=== PATIENT | female | born 1970 | race Caucasian/White ===

== ENCOUNTER → 2024-06-05 12:16 | Outpatient (CLI) | payer BC, SELFPAY ==
[2024-06-05 15:27] LABS: Influenza A - CEPHEID Flu A NEGATIVE (NEGATIVE); Influenza B - CEPHEID Flu B NEGATIVE (NEGATIVE); Respiratory Syncytial Virus Negative (Negative)
[2024-06-05 15:30] LABS: COVID-19 CEPHEID 4-PLEX PCR Negative (Negative)
== END ==
PROVIDERS: Visit Provider Student in an Organized Health Care Education/Training Program
DX: R05.1 Acute cough (principal)
CPT/HCPCS: 0241U

== ENCOUNTER → 2024-07-27 08:15 | Outpatient (CLI) | payer BC, SELFPAY ==
[2024-07-27 10:29] LABS: Add Manual Diff / Slide Review NO; Basophils Absolute Auto 100 /uL (0-100); Basophils Percent Auto 1.2 % (0-2); Eosinophils Absolute Auto 100 /uL (0-450); Eosinophils Percent Auto 2.8 % (2-4); Hematocrit 37.6 % (36-46); Hemoglobin 12.4 g/dL (12.0-16.0); Lymphocytes Absolute Auto 2100 /uL (1100-4500); Lymphocytes Percent Auto 44.4 % (25-40); Mean Corpuscular HGB Conc 32.9 % (30-36); Mean Corpuscular Hemoglobin 29.8 PG (26-34); Mean Corpuscular Volume 90.5 fL (80-100); Monocytes Absolute Auto 400 /uL (0-900); Monocytes Percent Auto 8.6 % (3-14); Neutrophils Absolute Auto 2000 /uL (1500-7000); Platelet Count 267 X10^3/uL (150-400); Red Blood Cell Count 4.16 X10^6/uL (4.0-5.2); Red Cell Distribution Width 13.8 % (11.6-14.8); White Blood Cell Count 4.7 X10^3/uL (4.5-11.0)
[2024-07-27 10:55] LABS: HEMOLYSIS < 15 (0-50); Iron 67 ug/dL (37-170)
[2024-07-27 11:03] LABS: Alanine Aminotransferase 21 IU/L (<35); Albumin 4.1 g/dL (3.5-5.0); Albumin Globulin Ratio 1.5 (1.0-2.8); Alkaline Phosphatase 65 U/L (38-126); Aspartate Aminotransferase 29 IU/L (14-36); BUN Creatinine Ratio 18.7 (6-22); Bilirubin Total 0.5 mg/dL (0.2-1.3); Blood Urea Nitrogen 14 mg/dL (7-17); Calcium 9.7 mg/dL (8.4-10.2); Carbon Dioxide 31 mmol/L (22-32); Chloride 105 mmol/L (98-107); Cholesterol 252 mg/dL (140-199); Estimated Glomerular Filt Rate > 60 mL/min (>60); Globulin 2.8 g/dL (1.7-4.1); Glucose 90 mg/dL (70-100); HDL Cholesterol 70 mg/dL (40-60); HEMOLYSIS < 15 (0-50); LDL Cholesterol Calculated 162 mg/dL (<100); Potassium 4.5 mmol/L (3.4-5.1); Sodium 138 mmol/L (137-145); Total Protein 6.9 g/dL (6.3-8.2); Triglycerides 99 mg/dL (35-150)
[2024-07-27 11:05] LABS: Percent Iron Saturation 20 % (15-50); Total Iron Binding Capacity 327 ug/dL (265-497); Transferrin 263 mg/dL (206-381)
[2024-07-27 11:15] LABS: Vitamin D 25 Hydroxy (D3) 29.9 ng/mL (30.0-100.0)
[2024-07-27 11:16] LABS: Free T4, Direct Thyroxine 0.99 ng/dL (0.78-2.19)
[2024-07-27 11:30] LABS: TSH w/ Reflex to FT4 1.03 uIU/mL (0.47-4.68)
[2024-07-27 11:39] LABS: Ferritin 17 ng/mL (11-264)
[2024-07-27 12:06] LABS: Folate > 20.0 ng/mL (2.76-20.0); Vitamin B12 654 pg/mL (239-931)
== END ==
PROVIDERS: PCP Registered Nurse Diabetes Educator; Referring Provider Registered Nurse Diabetes Educator; Visit Provider Registered Nurse Diabetes Educator
DX: Z00.00 Encounter for general adult medical examination without abnormal findings (principal); D64.9 Anemia, unspecified; R53.83 Other fatigue
CPT/HCPCS: 36415; 80053; 80061; 82306; 82607; 82728; 82746; 83540; 83550; 84439; 84443; 85025

== ENCOUNTER → 2024-12-02 10:33 | Outpatient (CLI) | payer BC, SELFPAY | PROVIDERS: PCP Registered Nurse Diabetes Educator; Visit Provider Registered Nurse | DX: J02.9 Acute pharyngitis, unspecified (principal) | CPT/HCPCS: 87070 ==

== ENCOUNTER → 2025-02-13 17:31 | Outpatient (CLI) | payer BC, SELFPAY ==
--- NOTE | 2025-02-13 17:32 | DI.RAD.S_ITS ---
PROCEDURE: XR HIP W PEL IF DONE LT 2V INDICATIONS: eval L hip pain x 2 months TECHNIQUE: 2 views of the hip were acquired. COMPARISON: None. FINDINGS: Bones: No fractures or dislocations. No suspicious bony lesions. The visualized pelvic ring appears intact. Soft tissues: No suspicious soft tissue calcifications or masses. IMPRESSION: No acute bony abnormality. Approved by: Abraham Wade M.D. on 02/14/2025 at 17:11
== END ==
PROVIDERS: PCP Registered Nurse Diabetes Educator; Referring Provider Registered Nurse Diabetes Educator; Visit Provider Registered Nurse Diabetes Educator
DX: M25.552 Pain in left hip (principal)
CPT/HCPCS: 73502

== ENCOUNTER 2025-05-30 09:00 | Outpatient (RCR) | payer BC, SELFPAY ==
--- NOTE | 2025-04-04 13:29 | PT.OIE ---
Current Diagnoses Stress incontinence (female) (male) (04/03/25) Past Medical History (Last Reviewed 03/23/25 @ 09:47 by Sarika Garg MA) Anxiety Dyslipidemia History of left breast cancer Major depressive disorder, recurrent, mild Visit Care Team Role Provider Type LEA Flowers Attending Provider Advanced Visual Coordinator Family Provider Primary Care Provider Referring Provider Specialty: Medical Address: [address] [place] [address], [facility] Email: [email or web address] Physical Therapy Initial Evaluation PT-OP-A Visit Information Start: 04/03/25 13:10 Freq: Status: Active Protocol: Document 04/03/25 15:22 [facility] (Rec: 04/03/25 15:38 [facility] [id number]) Out-Patient Physical Therapy Visit Information Visit Information Visit Type Initial Evaluation Visit Note pt late for paperwork prior to appt, Visit Start Time 15:25 Visit Stop Time 16:05 Visit Number 1 Evaluation Information Evaluation Date 04/03/25 PT-OP-B Current Condition Start: 04/03/25 13:10 Freq: Status: Active Protocol: Document 04/03/25 15:22 [facility] (Rec: 04/03/25 15:38 [facility] [id number]) Current Condition History of Current Condition Current Complaints urinary stress incontinence History of Current pt notes symptoms since she was 40. Pt notes leakage Condition with running, coughing, sneezeing, jumping. Sometimes she will also have urgency and will then leak. She thinks about her symptom daily and she did start wearing protective underware. No symptoms of pelvic floor heaviness. Has c/o left sided hip pain. Pain started in Feburary. One vaginal delivery at 40 years old. Minor tearing into the perineum. hx of breast cancer 2016 and took tomoxifin and stopped taking it in 2021 she does have a history of pain with intercourse, worse in the past 6 months. pt shows me where her hip pain is and its at the top of her pelvis. Bowel movements are more loose now than previously fluid intake tries to drink a lot of water, 1-2 cups of coffee in the am and in evening water or sparkling wakes up 1 time some times 2 to void at night. PT-OP-C Subjective Start: 04/03/25 13:10 Freq: Status: Active Protocol: Document 04/03/25 16:18 [facility] (Rec: 04/03/25 16:19 [facility] [id number]) Patient Questionnaires Pelvic Pain and Urgency/Frequency Patient Symptom Scale Pelvic Pain Score 5 OP-PT Pain Assessment Location left iliac crest pain Pain Location pain on top of the iliac crest Details Intensity 4 Scale Used Numeric (0 - 10) Description Aching Description- Other worse the day after running PT-OP-I Pelvic Floor Start: 04/03/25 13:10 Freq: Status: Active Protocol: Document 04/03/25 16:10 [facility] (Rec: 04/03/25 16:13 [facility] [id number]) Pelvic Floor Assessment Urine Pelvic Floor Surgery No Other Urinary urinary stress incontinence Symptoms Leakage Cause Exercise Other Leakage Causes strong urge to void and walking to the toilet Leaks Per Day 1-2 Pads Used In 24 she is using specific underwear for leakage Hours Pelvic Clock Pelvic Clock 12-3 Atrophy Pelvic Clock 3-6 Atrophy Pelvic Clock 6-9 Atrophy Pelvic Clock 9-12 Atrophy Contraction Ability Voluntary Weak Contraction Voluntary Relaxation Weak Manual Muscle 2 Testing Left Manual Muscle 2 Testing Right Manual Muscle 1 Testing Anterior Manual Muscle 1 Testing Posterior Muscle Endurance ( 8 Seconds) Comments Pelvic Floor pubococcygeus weakness Comments PT-OP-Q Treatments Start: 04/03/25 13:10 Freq: Status: Active Protocol: Document 04/03/25 16:08 [facility] (Rec: 04/03/25 16:10 [facility] [id number]) Therapeutic Exercises Supine Exercises supine adductor assist with pelvic floor Reps/Minutes 10 reps holding 10 seconds and relaxing 10 seconds Comments cues to focus on the anterior pelvic floor Sidelying Exercises clam shells Reps/Minutes 3 x 10 reps 2-3 days per week Self-Care/Home Management Treatment Education Patient Education Home Exercise Program Other Education pt was educated on vaginal estrogen cream for atrophy PT-OP-T Assessment and Plan Start: 04/03/25 13:10 Freq: Status: Active Protocol: Document 04/03/25 15:15 [facility] (Rec: 04/04/25 13:26 [facility] [id number]) Physical Therapy Assessment Rehab Potential Rehabilitation Excellent Potential Evaluation Complexity Number of Personal 0 Factors/ Comorbidities Number of Body 1-2 Systems Impaired Clinical Stable Presentation at Evaluation Impairments Impairments Activity Tolerance,Pain,Soft Tissue Mobility,Strength Other Impairments urinary stress incontinence Goals 3 Impairment weakness of the pelvic floor with anterior wall of 1/5 MMT, posterior wall 1/5 MMT and lateral shipman 2/5 Brain Picker Goal (LTG) With a pelvic floor strengthening program Torie is able to increase pelvic floor strength to 3/5 MMT for all shipman of the levator ani LTG Duration 8 weeks 2 Impairment urge incontinence symptoms when pt is trying to walk to the bathroom to void once she has a strong urge to void Short Term Goal (STG Torie is educated on the urge deference technique and ) bladder retraining STG Duration 4 weeks [facility] Goal (LTG) Torie is no longer c/o urinary urgency and urge incontinence symptoms LTG Duration 8 weeks 1 Impairment urinary stress incontinence with exercise and with sneezing and coughing Brain Picker Goal (LTG) Torie reports a overall reduction in urinary stress incontinence symptoms LTG Duration 8 weeks Assessment Summary Assessment Torie is a 54 year old female who presents to PT with primary c/o urinary stress incontinence with some c/o urgency and urge incontinence symptoms. She notes her symptoms began after the vaginal delivery of her baby at age 40. She also has a history of breast cancer in 2017 and took tamoxifen x 5 years. Torie is a runner but has had to cut back on running due to left sided hip pain. She also reports urinary leakage with running. With exam today there is vaginal atrophy noted and Torie is weak in all sections of the pelvic clock. She tests 1/5 MMT for the anterior and posterior shipman and 2/5 MMT for the lateral shipman of the levator ani. She is able to sustain a contraction approx 8 seconds in supine. Torie may be a good candidate for vaginal estrogen cream to help with the atrophy and I did talk to her about discussing this option with her doctor. She is also dealing with left sided hip/pelvis pain that limits her running. Her pain is described on the top of the iliac crest on the left side. She tests weak for lateral hip strength on the left side. She is a good candidate for PT working on pelvic floor strength and endurance training as well as hip stabilization exercises. Physical Therapy Plan Frequency and Duration Frequency of 1x/Week Treatment Duration of 8 treatment (weeks) Plan of Care Start 04/03/25 Date Plan of Care End 05/29/25 Date Therapeutic Interventions Therapeutic Home Exercise Program,Neuromuscular Re-education, Interventions Patient/Caregiver Education,Self-Care/Home Management, Therapeutic Exercises Modalities Biofeedback Next Visit Focus/Plan Next Note Type Treatment Note Next Visit Plan Begin EMG biofeedback for pelvic floor strength and endurance training
--- NOTE | 2025-04-04 13:29 | PT.OPPOC ---
Physical, Occupational & Speech Therapy At [facility] Current Diagnoses Stress incontinence (female) (male) (04/03/25) Visit Care Team Role Provider Type LEA Flowers Attending Provider Advanced Replacer Family Provider Primary Care Provider Referring Provider Specialty: Medical Address: [address] [place] [address], [facility] Email: [email or web address] Plan Of Care PT-OP-B Current Condition Start: 04/03/25 13:10 Freq: Status: Active Protocol: Document 04/03/25 15:22 [facility] (Rec: 04/03/25 15:38 [facility] [id number]) Current Condition History of Current Condition Current Complaints urinary stress incontinence History of Current pt notes symptoms since she was 40. Pt notes leakage Condition with running, coughing, sneezing, jumping. Sometimes she will also have urgency and will then leak. She thinks about her symptom daily and she did start wearing protective underwear. No symptoms of pelvic floor heaviness. Has c/o left sided hip pain. Pain started in November. One vaginal delivery at 40 years old. Minor tearing into the perineum. hx of breast cancer 2016 and took tomoxifen and stopped taking it in 2021 she does have a history of pain with intercourse, worse in the past 6 months. pt shows me where her hip pain is and its at the top of her pelvis. Bowel movements are more loose now than previously fluid intake tries to drink a lot of water, 1-2 cups of coffee in the am and in evening water or sparkling wakes up 1 time some times 2 to void at night. PT-OP-T Assessment and Plan Start: 04/03/25 13:10 Freq: Status: Active Protocol: Document 04/03/25 15:15 [facility] (Rec: 04/04/25 13:26 [facility] [id number]) Physical Therapy Assessment Rehab Potential Rehabilitation Excellent Potential Evaluation Complexity Number of Personal 0 Factors/ Comorbidities Number of Body 1-2 Systems Impaired Clinical Stable Presentation at Evaluation Impairments Impairments Activity Tolerance,Pain,Soft Tissue Mobility,Strength Other Impairments urinary stress incontinence Goals 3 Impairment weakness of the pelvic floor with anterior wall of 1/5 MMT, posterior wall 1/5 MMT and lateral shipman 2/5 Child Development Director Goal (LTG) With a pelvic floor strengthening program Torie is able to increase pelvic floor strength to 3/5 MMT for all shipman of the levator ani LTG Duration 8 weeks 2 Impairment urge incontinence symptoms when pt is trying to walk to the bathroom to void once she has a strong urge to void Short Term Goal (STG Torie is educated on the urge deference technique and ) bladder retraining STG Duration 4 weeks Detention Goal (LTG) Torie is no longer c/o urinary urgency and urge incontinence symptoms LTG Duration 8 weeks 1 Impairment urinary stress incontinence with exercise and with sneezing and coughing Detention Goal (LTG) Torie reports a overall reduction in urinary stress incontinence symptoms LTG Duration 8 weeks Assessment Summary Assessment Torie is a 54 year old female who presents to PT with primary c/o urinary stress incontinence with some c/o urgency and urge incontinence symptoms. She notes her symptoms began after the vaginal delivery of her baby at age 40. She also has a history of breast cancer in 2017 and took tamoxifen x 5 years. Torie is a runner but has had to cut back on running due to left sided hip pain. She also reports urinary leakage with running. With exam today there is vaginal atrophy noted and Torie is weak in all sections of the pelvic clock. She tests 1/5 MMT for the anterior and posterior shipman and 2/5 MMT for the lateral shipman of the levator ani. She is able to sustain a contraction approx 8 seconds in supine. Torie may be a good candidate for vaginal estrogen cream to help with the atrophy and I did talk to her about discussing this option with her doctor. She is also dealing with left sided hip/pelvis pain that limits her running. Her pain is described on the top of the iliac crest on the left side. She tests weak for lateral hip strength on the left side. She is a good candidate for PT working on pelvic floor strength and endurance training as well as hip stabilization exercises. Physical Therapy Plan Frequency and Duration Frequency of 1x/Week Treatment Duration of 8 treatment (weeks) Plan of Care Start 04/03/25 Date Plan of Care End 05/29/25 Date Therapeutic Interventions Therapeutic Home Exercise Program,Neuromuscular Re-education, Interventions Patient/Caregiver Education,Self-Care/Home Management, Therapeutic Exercises Modalities Biofeedback Next Visit Focus/Plan Next Note Type Treatment Note Next Visit Plan Begin EMG biofeedback for pelvic floor strength and endurance training Plan of Care Dates Plan of Care Start Date 04/03/25 Plan of Care End Date 05/29/25 Electronically Signed by: Elaine Harding, PT 04/04/25 [id number] If you are in agreement with this Plan of Care, please return a signed and dated copy. I have reviewed this Plan of Care and certify that the skilled therapy services above are required to meet the patient?s needs. Physician Signature Date Printed Name and Credentials Clinical Instructor Signature Printed Name and Credentials
--- NOTE | 2025-04-19 16:17 | PT.OTN ---
Current Diagnoses Stress incontinence (female) (male) (04/19/25) Physical Therapy Treatment Note PT-OP-A Visit Information Start: 04/03/25 13:10 Freq: Status: Active Protocol: Document 04/19/25 15:16 [facility] (Rec: 04/19/25 15:28 [facility] [id number]) Out-Patient Physical Therapy Visit Information Visit Information Visit Type Treatment Note Visit Start Time 15:15 Visit Stop Time 16:00 Visit Number 2 Evaluation Information Evaluation Date 04/03/25 PT-OP-B Current Condition Start: 04/03/25 13:10 Freq: Status: Active Protocol: Document 04/03/25 15:22 [facility] (Rec: 04/03/25 15:38 [facility] [id number]) Current Condition History of Current Condition Current Complaints urinary stress incontinence History of Current pt notes symptoms since she was 40. Pt notes leakage Condition with running, coughing, sneezeing, jumping. Sometimes she will also have urgency and will then leak. She thinks about her symptom daily and she did start wearing protective underware. No symptoms of pelvic floor heaviness. Has c/o left sided hip pain. Pain started in Feburary. One vaginal delivery at 40 years old. Minor tearing into the perineum. hx of breast cancer 2016 and took tomoxifin and stopped taking it in 2021 she does have a history of pain with intercourse, worse in the past 6 months. pt shows me where her hip pain is and its at the top of her pelvis. Bowel movements are more loose now than previously fluid intake tries to drink a lot of water, 1-2 cups of coffee in the am and in evening water or sparkling wakes up 1 time some times 2 to void at night. PT-OP-C Subjective Start: 04/03/25 13:10 Freq: Status: Active Protocol: Document 04/19/25 15:16 [facility] (Rec: 04/19/25 15:28 [facility] [id number]) OP-PT Subjective Patient Comments Patient Comments pt reports she has been trying her exercises but sometimes feels her pelvic floor more than others, today she felt she needed to void more. She also started PT for her hips PT-OP-I Pelvic Floor Start: 04/03/25 13:10 Freq: Status: Active Protocol: Document 04/03/25 16:10 [facility] (Rec: 04/03/25 16:13 [facility] [id number]) Pelvic Floor Assessment Urine Pelvic Floor Surgery No Other Urinary urinary stress incontinence Symptoms Leakage Cause Exercise Other Leakage Causes strong urge to void and walking to the toilet Leaks Per Day 1-2 Pads Used In 24 she is using specific underwear for leakage Hours Pelvic Clock Pelvic Clock 12-3 Atrophy Pelvic Clock 3-6 Atrophy Pelvic Clock 6-9 Atrophy Pelvic Clock 9-12 Atrophy Contraction Ability Voluntary Weak Contraction Voluntary Relaxation Weak Manual Muscle 2 Testing Left Manual Muscle 2 Testing Right Manual Muscle 1 Testing Anterior Manual Muscle 1 Testing Posterior Muscle Endurance ( 8 Seconds) Comments Pelvic Floor pubococcygeus weakness Comments PT-OP-Q Treatments Start: 04/03/25 13:10 Freq: Status: Active Protocol: Document 04/19/25 15:16 [facility] (Rec: 04/19/25 15:28 [facility] [id number]) Therapeutic Exercises Supine Exercises piriformis stretch Reps/Minutes hold 1-2 min pernell pose Reps/Minutes hold 1-2 min happy baby Reps/Minutes hold 1-2 min modified squat stretch Reps/Minutes hold 1-2 minutes quick pelvic floor contrations Reps/Minutes x10 reps 2 sec 2 sec off pelvic floor isolations Supine Exercise Name elevated resting tone 5.0 went to 6 uv Reps/Minutes 10 sec on 10 sec off x 10 reps Comments 16.3 and 25.5 max supine adductor assist with pelvic floor Supine Exercise Name 15.8 uv with 25 max resting tone dropped to 3 uv using the manuel template Reps/Minutes 10 reps holding 10 seconds and relaxing 10 seconds Comments cues to focus on the anterior pelvic floor Sidelying Exercises clam shells Reps/Minutes 3 x 10 reps 2-3 days per week Self-Care/Home Management Treatment Education Other Education pt educated on the urge deference technique for bladder retraining PT-OP-T Assessment and Plan Start: 04/03/25 13:10 Freq: Status: Active Protocol: Document 04/19/25 15:15 [facility] (Rec: 04/19/25 16:16 [facility] [id number]) Physical Therapy Assessment Goals 3 Impairment weakness of the pelvic floor with anterior wall of 1/5 MMT, posterior wall 1/5 MMT and lateral shipman 2/5 Multiple Needle Stitcher Goal (LTG) With a pelvic floor strengthening program Torie is able to increase pelvic floor strength to 3/5 MMT for all shipman of the levator ani LTG Duration 8 weeks 2 Impairment urge incontinence symptoms when pt is trying to walk to the bathroom to void once she has a strong urge to void Short Term Goal (STG Torie is educated on the urge deference technique and ) bladder retraining STG Duration 4 weeks Multiple Needle Stitcher Goal (LTG) Torie is no longer c/o urinary urgency and urge incontinence symptoms LTG Duration 8 weeks 1 Impairment urinary stress incontinence with exercise and with sneezing and coughing Long-Term Goal (LTG) Torie reports a overall reduction in urinary stress incontinence symptoms LTG Duration 8 weeks Assessment Summary Assessment I started EMG biofeedback for Torie today and she tolerated this really well. She did have elevated resting tone at 5 uv on EMG biofeedback which went down a bit to 3 uv with manuel template and adductor assist. I started her with stretches for her hips today as well to help with pelvic floor relaxation Physical Therapy Plan Frequency and Duration Frequency of 1x/Week Treatment Duration of 8 treatment (weeks) Plan of Care Start 04/03/25 Date Plan of Care End 05/29/25 Date Therapeutic Interventions Therapeutic Home Exercise Program,Neuromuscular Re-education, Interventions Patient/Caregiver Education,Self-Care/Home Management, Therapeutic Exercises Modalities Biofeedback Next Visit Focus/Plan Next Note Type Treatment Note Next Visit Plan review urge deference technique, stretches for the hips and continue with endurance training for the pelvic floor
--- NOTE | 2025-05-15 16:21 | PT.OTN ---
Current Diagnoses Stress incontinence (female) (male) (05/15/25) Physical Therapy Treatment Note PT-OP-A Visit Information Start: 04/03/25 13:10 Freq: Status: Active Protocol: Document 05/15/25 15:13 [facility] (Rec: 05/15/25 15:35 [facility] [id number]) Out-Patient Physical Therapy Visit Information Visit Information Visit Type Treatment Note Visit Start Time 15:15 Visit Stop Time 16:00 Evaluation Information Evaluation Date 04/03/25 PT-OP-B Current Condition Start: 04/03/25 13:10 Freq: Status: Active Protocol: Document 04/03/25 15:22 [facility] (Rec: 04/03/25 15:38 [facility] [id number]) Current Condition History of Current Condition Current Complaints urinary stress incontinence History of Current pt notes symptoms since she was 40. Pt notes leakage Condition with running, coughing, sneezeing, jumping. Sometimes she will also have urgency and will then leak. She thinks about her symptom daily and she did start wearing protective underware. No symptoms of pelvic floor heaviness. Has c/o left sided hip pain. Pain started in Feburary. One vaginal delivery at 40 years old. Minor tearing into the perineum. hx of breast cancer 2016 and took tomoxifin and stopped taking it in 2021 she does have a history of pain with intercourse, worse in the past 6 months. pt shows me where her hip pain is and its at the top of her pelvis. Bowel movements are more loose now than previously fluid intake tries to drink a lot of water, 1-2 cups of coffee in the am and in evening water or sparkling wakes up 1 time some times 2 to void at night. PT-OP-C Subjective Start: 04/03/25 13:10 Freq: Status: Active Protocol: Document 05/15/25 15:13 [facility] (Rec: 05/15/25 15:35 [facility] [id number]) OP-PT Subjective Patient Comments Patient Comments pt notes she is paying attention more and she has a better idea of when she is emptying her bladder all the way, the urge technaique has been helping she did make a appt with dr tate for vaginal estrogen PT-OP-I Pelvic Floor Start: 04/03/25 13:10 Freq: Status: Active Protocol: Document 04/03/25 16:10 [facility] (Rec: 04/03/25 16:13 [facility] [id number]) Pelvic Floor Assessment Urine Pelvic Floor Surgery No Other Urinary urinary stress incontinence Symptoms Leakage Cause Exercise Other Leakage Causes strong urge to void and walking to the toilet Leaks Per Day 1-2 Pads Used In 24 she is using specific underwear for leakage Hours Pelvic Clock Pelvic Clock 12-3 Atrophy Pelvic Clock 3-6 Atrophy Pelvic Clock 6-9 Atrophy Pelvic Clock 9-12 Atrophy Contraction Ability Voluntary Weak Contraction Voluntary Relaxation Weak Manual Muscle 2 Testing Left Manual Muscle 2 Testing Right Manual Muscle 1 Testing Anterior Manual Muscle 1 Testing Posterior Muscle Endurance ( 8 Seconds) Comments Pelvic Floor pubococcygeus weakness Comments PT-OP-Q Treatments Start: 04/03/25 13:10 Freq: Status: Active Protocol: Document 05/15/25 15:13 [facility] (Rec: 05/15/25 15:35 [facility] [id number]) Therapeutic Exercises Supine Exercises TA withmarch Reps/Minutes x 10 reps templates for eccentric control and coordination Reps/Minutes 5 min piriformis stretch Supine Exercise Name HEP pernell pose Supine Exercise Name HEP happy baby Supine Exercise Name HEP modified squat stretch Supine Exercise Name HEP quick pelvic floor contrations Supine Exercise Name HEP Reps/Minutes x10 reps 2 sec 2 sec off pelvic floor isolations Supine Exercise Name resting tone dropped to 2.0 uv Reps/Minutes 10 sec on 10 sec off x 10 reps Comments 15.2 and 21.5 supine adductor assist with pelvic floor Supine Exercise Name 17.9 and max 26.9 Reps/Minutes 10 reps holding 10 seconds and relaxing 10 seconds Comments cues to focus on the anterior pelvic floor Standing Exercises standing single leg stance Reps/Minutes hold working up to 30 sec on each leg without pelvic dropping PT-OP-T Assessment and Plan Start: 04/03/25 13:10 Freq: Status: Active Protocol: Document 05/15/25 16:15 [facility] (Rec: 05/15/25 16:19 [facility] [id number]) Physical Therapy Assessment Goals 3 Impairment weakness of the pelvic floor with anterior wall of 1/5 MMT, posterior wall 1/5 MMT and lateral shipman 2/5 Intermediate Goal (LTG) With a pelvic floor strengthening program Torie is able to increase pelvic floor strength to 3/5 MMT for all shipman of the levator ani LTG Duration 8 weeks 2 Impairment urge incontinence symptoms when pt is trying to walk to the bathroom to void once she has a strong urge to void Short Term Goal (STG Torie is educated on the urge deference technique and ) bladder retraining STG Duration 4 weeks Plant Technician Goal (LTG) Torie is no longer c/o urinary urgency and urge incontinence symptoms LTG Duration 8 weeks 1 Impairment urinary stress incontinence with exercise and with sneezing and coughing Intermediate Goal (LTG) Torie reports a overall reduction in urinary stress incontinence symptoms LTG Duration 8 weeks Assessment Summary Assessment Torie is doing better overall with controlling urgency and has been working on fully emptying her bladder, she is also seeing a PT for left lateral hip pain. She has slowly been working on strengthening to return to running. I added in templates for eccentric control today and we began working on TA stabilization with supine marches. I also added in single leg stance with out glut med drop. Torie notes that it normally hurts her left hip to stand single leg however today with leveling her pelvis it took away the hip pain. Physical Therapy Plan Frequency and Duration Frequency of 1x/Week Treatment Duration of 8 treatment (weeks) Plan of Care Start 04/03/25 Date Plan of Care End 05/29/25 Date Therapeutic Interventions Therapeutic Home Exercise Program,Neuromuscular Re-education, Interventions Patient/Caregiver Education,Self-Care/Home Management, Therapeutic Exercises Modalities Biofeedback Next Visit Focus/Plan Next Note Type Treatment Note Next Visit Plan review new stabilization exercises next visit and check in with how Torie is doing with running and stress incontinence symptoms
--- NOTE | 2025-05-30 13:12 | PT.OPPOC ---
Physical, Occupational & Speech Therapy At [facility] Current Diagnoses Stress incontinence (female) (male) (05/30/25) Visit Care Team Role Provider Type LEA Flowers Attending Provider Advanced Filler Sifter Helper Family Provider Primary Care Provider Referring Provider Specialty: Medical Address: [address] [place] [address], [facility] Email: [email or web address] Plan Of Care PT-OP-A Visit Information Start: 04/03/25 13:10 Freq: Status: Active Protocol: Document 05/30/25 09:05 [facility] (Rec: 05/30/25 09:49 [facility] [id number]) Out-Patient Physical Therapy Visit Information Visit Information Visit Type Progress Note Visit Start Time 09:05 Visit Stop Time 09:45 Visit Number 4 PT-OP-B Current Condition Start: 04/03/25 13:10 Freq: Status: Active Protocol: Document 04/03/25 15:22 [facility] (Rec: 04/03/25 15:38 [facility] [id number]) Current Condition History of Current Condition Current Complaints urinary stress incontinence History of Current pt notes symptoms since she was 40. Pt notes leakage Condition with running, coughing, sneezing, jumping. Sometimes she will also have urgency and will then leak. She thinks about her symptom daily and she did start wearing protective underware. No symptoms of pelvic floor heaviness. Has c/o left sided hip pain. Pain started in November. One vaginal delivery at 40 years old. Minor tearing into the perineum. hx of breast cancer 2016 and took tamoxifen and stopped taking it in 2021 she does have a history of pain with intercourse, worse in the past 6 months. pt shows me where her hip pain is and its at the top of her pelvis. Bowel movements are more loose now than previously fluid intake tries to drink a lot of water, 1-2 cups of coffee in the am and in evening water or sparkling wakes up 1 time some times 2 to void at night. PT-OP-C Subjective Start: 04/03/25 13:10 Freq: Status: Active Protocol: Document 05/30/25 09:05 [facility] (Rec: 05/30/25 09:49 [facility] [id number]) OP-PT Subjective Patient Comments Patient Comments pt ran on wednesday and has been doing a run walk and she did 4 miles running and walking, no leakage with running urgency is much better and she did not notice the urgency while running this last time Patient Reported Improving Progress PT-OP-I Pelvic Floor Start: 04/03/25 13:10 Freq: Status: Active Protocol: Document 04/03/25 16:10 [facility] (Rec: 04/03/25 16:13 [facility] [id number]) Pelvic Floor Assessment Urine Pelvic Floor Surgery No Other Urinary urinary stress incontinence Symptoms Leakage Cause Exercise Other Leakage Causes strong urge to void and walking to the toilet Leaks Per Day 1-2 Pads Used In 24 she is using specific underwear for leakage Hours Pelvic Clock Pelvic Clock 12-3 Atrophy Pelvic Clock 3-6 Atrophy Pelvic Clock 6-9 Atrophy Pelvic Clock 9-12 Atrophy Contraction Ability Voluntary Weak Contraction Voluntary Relaxation Weak Manual Muscle 2 Testing Left Manual Muscle 2 Testing Right Manual Muscle 1 Testing Anterior Manual Muscle 1 Testing Posterior Muscle Endurance ( 8 Seconds) Comments Pelvic Floor pubococcygeus weakness Comments PT-OP-Q Treatments Start: 04/03/25 13:10 Freq: Status: Active Protocol: Document 05/30/25 09:05 [facility] (Rec: 05/30/25 09:49 [facility] [id number]) Therapeutic Exercises Supine Exercises TA withmarch Reps/Minutes x 10 reps templates for eccentric control and coordination Reps/Minutes 5 min piriformis stretch Supine Exercise Name HEP pernell pose Supine Exercise Name HEP happy baby Supine Exercise Name HEP modified squat stretch Supine Exercise Name HEP quick pelvic floor contractions Supine Exercise Name HEP Reps/Minutes x10 reps 2 sec 2 sec off pelvic floor isolations Supine Exercise Name average 2.2 Reps/Minutes 10 sec on 10 sec off x 10 reps Comments 14 and 20.6 supine adductor assist with pelvic floor Supine Exercise Name 17.9 and max 26.9 Reps/Minutes 10 reps holding 10 seconds and relaxing 10 seconds Comments cues to focus on the anterior pelvic floor Sidelying Exercises clam shells Reps/Minutes 3 x 10 reps 2-3 days per week Standing Exercises standing single leg stance Reps/Minutes hold working up to 30 sec on each leg without pelvic dropping PT-OP-T Assessment and Plan Start: 04/03/25 13:10 Freq: Status: Active Protocol: Document 05/30/25 09:05 [facility] (Rec: 05/30/25 09:49 [facility] [id number]) Physical Therapy Assessment Goals 3 Impairment weakness of the pelvic floor with anterior wall of 1/5 MMT, posterior wall 1/5 MMT and lateral shipman 2/5 Nursing Home Goal (LTG) With a pelvic floor strengthening program Torie is able to increase pelvic floor strength to 3/5 MMT for all shipman of the levator ani good progress LTG Duration 8 weeks 2 Impairment urge incontinence symptoms when pt is trying to walk to the bathroom to void once she has a strong urge to void Short Term Goal (STG Torie is educated on the urge deference technique and ) bladder retraining goal met STG Duration 4 weeks Nursing Home Goal (LTG) Torie is no longer c/o urinary urgency and urge incontinence symptoms torie reports a overall reduction of urinary urgency and urge incontinence symptoms at this time LTG Duration 8 weeks 1 Impairment urinary stress incontinence with exercise and with sneezing and coughing Nursing Home Goal (LTG) Torie reports a overall reduction in urinary stress incontinence symptoms excellent progress LTG Duration 8 weeks Assessment Summary Assessment Torie continues to make progress with pelvic floor strengthening and she has not noticed the urgency now. She is slowly returning to running and has not been noticing the leakage. We discussed working on pelvic floor isolations in more upright positions. The plan is to have her continue to work on her stretches and HEP and recheck in a few weeks. Physical Therapy Plan Frequency and Duration Frequency of 1x/Week Treatment Duration of 8 treatment (weeks) Plan of Care Start 05/30/25 Date Plan of Care End 07/25/25 Date Next Visit Focus/Plan Next Note Type Treatment Note Next Visit Plan review new stabilization exercises next visit and check in with how Torie is doing transitioning pelvic floor isolations into more upright positions Plan of Care Dates Plan of Care Start Date 05/30/25 Plan of Care End Date 07/25/25 Electronically Signed by: Elaine Harding, PT 05/30/25 [id number] If you are in agreement with this Plan of Care, please return a signed and dated copy. I have reviewed this Plan of Care and certify that the skilled therapy services above are required to meet the patient?s needs. Physician Signature Date Printed Name and Credentials Clinical Instructor Signature Printed Name and Credentials
--- NOTE | 2025-06-28 09:59 | PT.OPDS ---
Current Diagnoses Stress incontinence (female) (male) (05/30/25) Visit Care Team Role Provider Type LEA Flowers Attending Provider Advanced Groundskeeper Porter Family Provider Primary Care Provider Referring Provider Specialty: Medical Address: [address] [place] [address], [facility] Email: [email or web address] Visit Number Visit Number 4 Discharge Summary PT-OP-A Visit Information Start: 04/03/25 13:10 Freq: Status: Active Protocol: Document 05/30/25 09:05 [facility] (Rec: 05/30/25 09:49 [facility] [id number]) Out-Patient Physical Therapy Visit Information Visit Information Visit Type Progress Note Visit Start Time 09:05 Visit Stop Time 09:45 Visit Number 4 PT-OP-B Current Condition Start: 04/03/25 13:10 Freq: Status: Active Protocol: Document 04/03/25 15:22 [facility] (Rec: 04/03/25 15:38 [facility] [id number]) Current Condition History of Current Condition Current Complaints urinary stress incontinence History of Current pt notes symptoms since she was 40. Pt notes leakage Condition with running, coughing, sneezeing, jumping. Sometimes she will also have urgency and will then leak. She thinks about her symptom daily and she did start wearing protective underware. No symptoms of pelvic floor heaviness. Has c/o left sided hip pain. Pain started in Feburary. One vaginal delivery at 40 years old. Minor tearing into the perineum. hx of breast cancer 2016 and took tomoxifin and stopped taking it in 2021 she does have a history of pain with intercourse, worse in the past 6 months. pt shows me where her hip pain is and its at the top of her pelvis. Bowel movements are more loose now than previously fluid intake tries to drink a lot of water, 1-2 cups of coffee in the am and in evening water or sparkling wakes up 1 time some times 2 to void at night. PT-OP-C Subjective Start: 04/03/25 13:10 Freq: Status: Active Protocol: Document 05/30/25 09:05 [facility] (Rec: 05/30/25 09:49 [facility] [id number]) OP-PT Subjective Patient Comments Patient Comments pt ran on wednesday and has been doing a run walk and she did 4 miles running and walking, no leakage with running urgency is much better and she did not notice the urgency while running this last time Patient Reported Improving Progress PT-OP-I Pelvic Floor Start: 04/03/25 13:10 Freq: Status: Active Protocol: Document 04/03/25 16:10 [facility] (Rec: 04/03/25 16:13 [facility] [id number]) Pelvic Floor Assessment Urine Pelvic Floor Surgery No Other Urinary urinary stress incontinence Symptoms Leakage Cause Exercise Other Leakage Causes strong urge to void and walking to the toilet Leaks Per Day 1-2 Pads Used In 24 she is using specific underwear for leakage Hours Pelvic Clock Pelvic Clock 12-3 Atrophy Pelvic Clock 3-6 Atrophy Pelvic Clock 6-9 Atrophy Pelvic Clock 9-12 Atrophy Contraction Ability Voluntary Weak Contraction Voluntary Relaxation Weak Manual Muscle 2 Testing Left Manual Muscle 2 Testing Right Manual Muscle 1 Testing Anterior Manual Muscle 1 Testing Posterior Muscle Endurance ( 8 Seconds) Comments Pelvic Floor pubococcygeus weakness Comments PT-OP-T Assessment and Plan Start: 04/03/25 13:10 Freq: Status: Active Protocol: Document 06/28/25 09:57 [facility] (Rec: 06/28/25 09:58 [facility] [id number]) Physical Therapy Assessment Goals 3 Impairment weakness of the pelvic floor with anterior wall of 1/5 MMT, posterior wall 1/5 MMT and lateral shipman 2/5 Skilled Nursing Goal (LTG) With a pelvic floor strengthening program Torie is able to increase pelvic floor strength to 3/5 MMT for all shipman of the levator ani good progress LTG Duration 8 weeks 2 Impairment urge incontinence symptoms when pt is trying to walk to the bathroom to void once she has a strong urge to void Short Term Goal (STG Torie is educated on the urge deference technique and ) bladder retraining goal met STG Duration 4 weeks Forensics Team Director Goal (LTG) Torie is no longer c/o urinary urgency and urge incontinence symptoms torie reports a overall reduction of urinary urgency and urge incontinence symptoms at this time LTG Duration 8 weeks 1 Impairment urinary stress incontinence with exercise and with sneezing and coughing Forensics Team Director Goal (LTG) Torie reports a overall reduction in urinary stress incontinence symptoms excellent progress LTG Duration 8 weeks Assessment Summary Assessment Torie has not been seen since 05/30/25 and at that time she was making good progress and slowly returning to running. She canceled her last visit which was her final visit to recheck up on her progress. At this point she will be discharged to a [facility] Physical Therapy Plan Discharge Physical Therapy Discharge Comments Progressing well towards her goals and slowly returning to running
== END 2025-06-28 12:57 | disposition home or self-care (01) ==
LOC: PHYS 09:00
PROVIDERS: Family Provider Registered Nurse Diabetes Educator; PCP Registered Nurse Diabetes Educator; Referring Provider Registered Nurse Diabetes Educator; Visit Provider Registered Nurse Diabetes Educator
DX: N39.3 Stress incontinence (female) (male) (principal)
CPT/HCPCS: 97110; 97161; 97535